=== PATIENT | female | born 2005 | race Caucasian/White ===

== ENCOUNTER 2025-03-19 09:30 | Outpatient (AMB) | payer MEDICAID, SELFPAY ==
[2025-03-19 09:52] VITALS: BP 127/76; PULSE 89; RESP 18; TEMP 36.3; O2SAT 98; BMI 32.0
--- NOTE | 2025-03-19 09:52 | OBCLNT_ITS ---
Vital Signs 03/19/25 09:52 Height 1.7 m Height Method Stated Weight 92.646 kg Weight Measurement Method Standing Scale BMI 32.0 BP 127/76 Blood Pressure Source Automatic Cuff Blood Pressure Location Right Upper Arm Position Sitting Respiration 18 Pulse 89 Pulse Source Monitor Temp 97.4 F Temp Source Oral Pulse Oximetry (%) 98 Oxygen Delivery Method Room Air Allergies/Home Meds Allergies & Medications Allergies No Known Allergies Allergy (Verified 03/19/25 09:53) Medication Reconciliation doxylamine 10 mg-pyridoxine (vit B6) 10 mg tablet,delayed release (Diclegis) 1 tab PO BID nausea 30 days #60 tabs 03/19/25 [Rx] Intake Visit Data Collection New Patient or Established: New Patient (never been to [facility]) Reason for Visit:: INITIAL CARE Seen by Clinical Staff ONLY (RN/MA): No Classification Clerk Required: No Do You Feel Safe at Home: Yes Authorities Contacted: N/A PCP or OBGYN visit in last 3 months: No Hx Now: Yes Are you currently on any form of Control: No Last menstrual period: 02/12/25 Pain Present Currently: No Pain Scale Used: Logan-Polanco/Numerical Pain scale:: 0 Smoking Status Smoking Status: Never smoker Questionnaires Covid-19 Vaccine Questionnaire Has patient been vacinated for Covid-19 Have you been vacinated for Covid-19: Yes PHQ-9 PHQ-2 Over the last 2 weeks, how often have you been bothered by any of the following problems? 1. Little interest or pleasure in doing things: not at all 2. Feeling down, depressed, or hopeless: not at all Total score: 0 PHQ-9 3. Trouble falling or staying asleep, or sleeping too much: Not at all 4. Feeling tired or having little energy: Not at all 5. Poor appetite or overeating: Not at all 6. Feeling bad about yourself - or that you are a failure or have let yourself or your family down: Not at all 7. Trouble concentrating on things, such as reading the newspaper or watching television: Not at all 8. Moving or speaking so slowly that other people could have noticed? - Or the opposite - being so fidgety or restless that you have been moving around a lot more than usual: not at all 9. Thoughts that you would be better off or of hurting yourself in some way: Not at all Total score: 0 Source: Developed by Drs. Shayne Bliss, Madison Nichole, Kyler Noonan and colleagues, with an educational terry from [employer]. Depression screen completed yes Social History Living Situation History Marital Status: Lives With: Family Housing: House Tobacco History Smoking Status: Never smoker Second Hand Smoke Exposure: No Alcohol History Alcohol Intake: Current Alcohol Intake Frequency: holidays/special occasions only Domestic Abuse History Do You Feel Safe at Home: Yes History of Present Illness HPI Narrative 19 yo for OBI. lmp 02/03/24, q month x6 days. edc11/10/25. sure date, father of baby supportive. happy about + preg test. taking PNV, refused pap today, afraid. agrees to PP pap. denies PMH, denies social habit, Right ovary removed due to cyst. no SAB complaints, + nausea OB Initial Visit OB Flowsheet OB Flowsheet Initial Weight: Not Recorded Date -?-?-?-?-?-?-?-?--?-?-?-?- EGA Weight BP Alb Glu CTX Pres Fundal ht FHR Mov Dilation Station Effacement Hx Notes Visit Note 03/19/25 -?-?-?-?-?-?-?-?-?-?-?-?- 6w 3d 92.646 kg 127/76 6 19 yo for OBI. happy about , lmp 02/02/25. denies any s/s of SAB. c/o nausea. no other complaints OB panel, HCG today, discuss comfort measure for nausea, Diclegesis bid X60, schedule OB sono foe viability, discuss sab precaution, increase fluid, rtc 4 week OBC, NIPT NV Menstrual History Menstrual reliability: definite Flow: normal Menstrual regularity: regular Monthly: Yes Age at menarche: 7 On control pills at conception: No Date of positive home test: 03/08/25 Associated symptoms (LMP): Reports nausea, vomiting, fatigue and breast tenderness OB History : 1 # of Living Children: 0 Infection History & Risk Evaluation History of STDs: none HIV risk evaluation: low risk Hepatitis B risk evaluation: low risk Patient or partner has history of Genital Herpes: No Genetic Screening & History Genetic Screening/Teratology Counseling - Includes patient, baby's father, or anyone in either family with: 1. Patient's age 35 years or older as of estimated date of delivery: No 2. Thalassemia (Citizen Of [place], Guatemalan, Mediterranean, or Background); MCV less than 80: No 3. Neural Tube Defect (Meningomyelocele, Spina Bifida, or Anencephaly): No 4. Congenital Heart Defect: No 5. Down Syndrome: No 6. Milad-Sachs (Ashkenazi Synagogue, Cajun, [place]ian [place]): No 7. Ya Disease (Ashkenazi Synagogue): No 8. Familial Dysautonomia (Ashkenazi Synagogue): No 9. Sickle Cell Disease or Trait (): No 10. Hemophilia or other blood disorders: No 11. Muscular Dystrophy: No 12. Cystic Fibrosis: No 13. Alcona's Chorea: No 14. Mental Retardation/Autism: No 15. Other inherited genetic or chromosomal disorder: No 16. Maternal Metabolic Disorder (EG,TYPE 1 Diabetes, PKU): No 17. Patient or baby's father had a child with defects not listed above: No 18. Recurrent loss or a stillbirth: No 19. Medications (including supplements, vitamins, herbs or otc drugs)/illicit/recreational drugs/alcohol since last menstrual period: No 20. Any other: No Infection History 1. Live with someone with TB or exposed to TB: No 2. Rash or viral illness since last menstrual period: No 3. Hepatitis B,C: No Other (see comments) Source: [employer] Review of Systems Review of Systems Systems Reviewed: All systems reviewed, normal except as documented Constitutional Constitutional: Reports fatigue Gastrointestinal Gastrointestinal: Reports nausea and Reports vomiting Endocrine Endocrine: Reports fatigue Exam General Limitations: no limitations General Appearance: alert, in no apparent distress, comfortable, cooperative, healthy appearing, well developed and well groomed Head Head exam: atraumatic, normocephalic and normal inspection Chest Chest inspection: Present normal inspection and symmetric chest wall rise Resp Respiratory exam: Present normal lung sounds bilaterally Card Cardiovascular exam: Present regular rate, normal rhythm and normal heart sounds Abdominal Abdominal exam: Present soft and normal bowel sounds Psych Psychiatric exam: Present normal affect and normal mood Office Procedures OB Clinic LOC & Office Proc's Nursing/Assessment Patient Status: Initial/New Patient OB Clinic Nursing Assessment: Medication Reconciliation, Update PMH in EMR and Vital Signs OB Clinic Coordination of Care: Complex Care and Chronic Disease 1-5, Consent,records obtained, informed consent, Education Simp Pt/Fam, Lab and Imaging orders, Results/Orders obtained and Staff clarify orders Special Needs: Heart tones New Patient Charge New Patient Point Assignment: [id number] New Patient Point Charge: HYPERBARIC WELDER DIVER Level 4 (1110-7145) Assessment & Plan Diagnosis / Problem List (1) Encounter for supervision of other normal , first trimester: Status: Acute Plan OB panel with HCG and UT today. diclegesis bid #60, discuss SAB precaution and comfort measure for nausea, hydrate, continue PNV, rtc 4 week OBC and NIPT, ob sono for viability Additional Plan Follow Up: 4 Weeks (obc)
== END 2025-03-19 10:24 | disposition home or self-care (01) ==
LOC: HODSOBC 09:30
PROVIDERS: Supervising Provider Advanced Practice Midwife; Visit Provider Advanced Practice Midwife
DX: Z34.01 Encounter for supervision of normal first pregnancy, first trimester (principal); Z3A.01 Less than 8 weeks gestation of pregnancy
CPT/HCPCS: 99204; G0463

== ENCOUNTER 2025-04-16 09:26 | Outpatient (AMB) | payer MEDICAID, SELFPAY ==
[2025-04-16 09:39] VITALS: BP 116/75; PULSE 91; RESP 17; TEMP 36.4; O2SAT 98; BMI 30.4
--- NOTE | 2025-04-16 09:39 | AMB.OBVISIT ---
Vital Signs 04/16/25 09:39 Height 1.7 m Height Method Stated Weight 87.997 kg Weight Measurement Method Standing Scale BMI 30.4 BP 116/75 Blood Pressure Source Automatic Cuff Blood Pressure Location Right Upper Arm Position Sitting Respiration 17 Pulse 91 Pulse Source Monitor Temp 97.6 F Temp Source Temporal Artery Scan Pulse Oximetry (%) 98 Oxygen Delivery Method Room Air Allergies/Home Meds Allergies & Medications Allergies No Known Allergies Allergy (Verified 04/16/25 09:43) Medication Reconciliation doxylamine 10 mg-pyridoxine (vit B6) 10 mg tablet,delayed release (Diclegis) 1 tab PO BID nausea 30 days #60 tabs 03/19/25 [Rx Confirmed 04/16/25] Intake Visit Data Collection New Patient or Established: Established Patient (seen at [facility] within 3 years) Reason for Visit:: OBC Seen by Clinical Staff ONLY (RN/MA): No Visual Merchandising Director Required: No Do You Feel Safe at Home: Yes Authorities Contacted: N/A PCP or OBGYN visit in last 3 months: Yes Date of Last PCP or OBGYN visit: 03/19/25 Hx Now: Yes Are you currently on any form of Control: No Pain Present Currently: No Smoking Status Smoking Status: Never smoker Questionnaires Covid-19 Vaccine Questionnaire Has patient been vacinated for Covid-19 Have you been vacinated for Covid-19: Yes PHQ-9 PHQ-2 Over the last 2 weeks, how often have you been bothered by any of the following problems? 1. Little interest or pleasure in doing things: not at all 2. Feeling down, depressed, or hopeless: not at all Total score: 0 PHQ-9 3. Trouble falling or staying asleep, or sleeping too much: Not at all 4. Feeling tired or having little energy: Not at all 5. Poor appetite or overeating: Not at all 6. Feeling bad about yourself - or that you are a failure or have let yourself or your family down: Not at all 7. Trouble concentrating on things, such as reading the newspaper or watching television: Not at all 8. Moving or speaking so slowly that other people could have noticed? - Or the opposite - being so fidgety or restless that you have been moving around a lot more than usual: not at all 9. Thoughts that you would be better off or of hurting yourself in some way: Not at all Total score: 0 If you checked off any problems, how difficult have these problems made it for you to do your work, take care of things at home, or get along with other people?: not difficult at all Source: Developed by Drs. Shayne Bliss, Madison Nichole, Kyler Noonan and colleagues, with an educational terry from [employer]. Depression screen completed yes Social History Living Situation History Marital Status: Lives With: Family Housing: House Tobacco History Smoking Status: Never smoker Second Hand Smoke Exposure: No Alcohol History Alcohol Intake: Current Alcohol Intake Frequency: holidays/special occasions only Domestic Abuse History Do You Feel Safe at Home: Yes Care OB Visit Log OB Flowsheet Initial Weight: Not Recorded Date <del>?</del> EGA Weight BP Alb Glu CTX Pres Fundal ht FHR Mov Dilation Station Effacement Hx Notes Visit Note 03/19/25 <del>?</del> 6w 3d 92.646 kg 127/76 6 19 yo for OBI. happy about , lmp 02/02/25. denies any s/s of SAB. c/o nausea. no other complaints OB panel, HCG today, discuss comfort measure for nausea, Diclegesis bid X60, schedule OB sono foe viability, discuss sab precaution, increase fluid, rtc 4 week OBC, NIPT NV 04/16/25 <del>?</del> 10w 3d 87.997 kg 116/75 absent unknown 10 145 absent doing well. n/v improved, no + FM yetdiclegesis helps. no SAB complaints discuss sab precaution, continue PNV and diclegesis, comfort measure for nausea. NIPT,sma and cf today. schedule anatomy scan with mfm, rtc 4 week obc ULISES Calculator Estimated Delivery Date Method Current WG Current Estimate 11/09/25 LMP (Certain) 10w 3d Other Estimates 11/10/25 Ultrasound #1 10w 2d Notes Visit Date: 04/16/25 Last Updated by: Ashley Monzon CNM 19 yo . lmp 02/02/25. EDC: 11/10/25, A+,abs-, rpr;;nr, rub imm, hbsag-,hiv-, gc/ct-, UT-, RPR::NR, Visit Date: 03/19/25 Last Updated by: Ashley Monzon CNM 19 yo , lmp 02/02/25. EDC 11/10/25 Office Procedures OB Clinic LOC & Office Proc's Nursing/Assessment Patient Status: Established Patient OB Clinic Nursing Assessment: Medication Reconciliation, Update PMH in EMR and Vital Signs OB Clinic Coordination of Care: Complex Care and Chronic Disease 1-5, Consent,records obtained, informed consent, Education Simp Pt/Fam and Staff clarify orders Special Needs: Heart tones Established Patient Charge Established Patient Point Assignment: 115 Established Patient Point Charge: EP Level 3 (80-115) Assessment & Plan Diagnosis / Problem List (1) Encounter for supervision of other normal , first trimester: Status: Acute (2) Encounter for supervision of high risk in first trimester, antepartum: Status: Acute Plan NIPT and carrier screen, sched mfm anatomy scan, discuss sab precaution, continue pnv and diclegesis, rtc 4 week obc Additional Plan Follow Up: 4 Weeks (obc)
== END 2025-04-16 10:05 | disposition home or self-care (01) ==
LOC: HODSOBC 09:26
PROVIDERS: Supervising Provider Advanced Practice Midwife; Visit Provider Advanced Practice Midwife
DX: Z34.01 Encounter for supervision of normal first pregnancy, first trimester (principal); Z3A.10 10 weeks gestation of pregnancy
CPT/HCPCS: 99213; G0463